=== PATIENT | female | born 1945 | race Caucasian/White ===

== ENCOUNTER 2017-03-21 11:21 | Emergency (ER) | payer MEDICARE, BC ==
[2017-03-21 11:59] VITALS: BP 159/86
[2017-03-21] MEDS ORDERED: Albuterol 0.083% 2.5 MG/3 ML Neb Soln NEB ONE (12:55)
[2017-03-21] MEDS ORDERED: methylPREDNISolone Sodium Succinate 125 MG/2 ML SDV IVPUSH ONE (12:55)
--- NOTE | 2017-03-21 12:56 | EDM.PDOC ---
ED HPI GENERAL MEDICAL PROBLEM - General Chief Complaint: Asthma Stated Complaint: BREATHING ISSUES Time Seen by Provider: 03/21/17 12:56 Source of Information: Reports: Patient History Limitations: Reports: No Limitations - History of Present Illness INITIAL COMMENTS - FREE TEXT/NARRATIVE: pt arrived with a history of having more sob in the last 24 hours. She is using her inhaler alot more. Pt states they are remodeling her cabin and wonders if the dust is playing a role. Onset: Other ( last 24 hours. ) Duration: Hour(s): Location: Reports: Chest Associated Symptoms: Reports: Cough, Shortness of Breath - Related Data Allergies Allergy/AdvReac Type Severity Reaction Status Date / Time No Known Allergies Allergy Verified 03/21/17 12:59 Home Meds: Home Meds Albuterol Sulfate [Proair Hfa] 2 puff INH ASDIRECTED PRN 03/21/17 [History] Albuterol [Proventil Neb Soln] 1 inh INH BID 03/21/17 [History] Budesonide/Formoterol [Symbicort 160-4.5 MCG] 1 puff INH BID 03/21/17 [History] Gabapentin [Neurontin] 600 mg PO BEDTIME 03/21/17 [History] Ibuprofen [IJD: Ibuprofen] 2,000 mg PO ASDIRECTED 03/21/17 [History] Tiotropium [Spiriva HandiHaler] 1 puff INH DAILY 03/21/17 [History] atorvaSTATin [Lipitor] 20 mg PO DAILY 03/21/17 [History] Past Medical History Cardiovascular History: Reports: High Cholesterol, Hypertension Respiratory History: Reports: Asthma, Croup [employer] History: Reports: Endometriosis Musculoskeletal History: Reports: Back Pain, Chronic, Fracture Other Musculoskeletal History: L3-L6 - Infectious Disease History Infectious Disease History: Reports: Measles, Mumps - Past Surgical History Female Surgical History: Reports: Hysterectomy Social & Family History - Tobacco Use Smoking Status *Q: Former Smoker Used Tobacco, but Quit: Yes Month Tobacco Last Used: February - Caffeine Use Caffeine Use: Reports: Coffee - Recreational Drug Use Recreational Drug Use: No ED ROS GENERAL - Review of Systems Review Of Systems: See Below Constitutional: Reports: No Symptoms HEENT: Reports: No Symptoms Respiratory: Reports: Shortness of Breath, Cough Cardiovascular: Reports: No Symptoms Endocrine: Reports: No Symptoms GI/Abdominal: Reports: No Symptoms : Reports: No Symptoms ED EXAM, GENERAL - Physical Exam Exam: See Below Free Text/Narrative:: pt arrived sob and very tight in the chest Exam Limited By: No Limitations General Appearance: Alert, Anxious, Mild Distress Ears: Normal TMs, Other ( pt has a large amount of wax in the left ear. ) Nose: Normal Inspection Throat/Mouth: Normal Inspection Head: Atraumatic Neck: Normal Inspection Respiratory/Chest: Decreased Breath Sounds, Wheezing Cardiovascular: Regular Rate, Rhythm GI/Abdominal: Soft, Non-Tender (Female) Exam: Deferred Rectal (Female) Exam: Deferred Back Exam: Normal Inspection Extremities: Normal Inspection Neurological: Alert, Oriented, Normal Cognition Psychiatric: Normal Affect Course - Vital Signs Last Recorded V/S: Last Vital Signs Temp 37.0 C 03/21/17 12:28 Pulse 95 03/21/17 12:28 Resp 20 03/21/17 12:28 BP 159/86 H 03/21/17 12:28 Pulse Ox 97 03/21/17 12:28 - Orders/Labs/Meds Orders: Active Orders 24 hr Category Date Time Status RT Aerosol Therapy [RC] ASDIRECTED Care 03/21/17 12:55 Active Labs: Laboratory Tests 03/21/17 03/21/17 Range/Units 13:06 13:06 WBC 9.2 (4.5-11.0) K/uL RBC 4.17 (3.30-5.50) M/uL Hgb 12.3 (12.0-15.0) g/dL Hct 38.9 (36.0-48.0) % MCV 93 (80-98) fL MCH 30 (27-31) pg MCHC 32 (32-36) % Plt Count 264 (150-400) K/uL Neut % (Auto) 57 (36-66) % Lymph % (Auto) 27 (24-44) % [place] % (Auto) 12 H (2-6) % Eos % (Auto) 4 (2-4) % Baso % (Auto) 1 (0-1) % Sodium 142 (140-148) mmol/L Potassium 4.5 (3.6-5.2) mmol/L Chloride 105 (100-108) mmol/L Carbon Dioxide 29 (21-32) mmol/L Anion Gap 8.0 (5.0-14.0) mmol/L BUN 12 (7-18) mg/dL Creatinine 0.9 (0.6-1.0) mg/dL Est Cr Clr Drug Dosing 48.11 mL/min Estimated GFR (MDRD) > 60 (>60) Glucose 112 H (74-106) mg/dL Calcium 9.1 (8.5-10.1) mg/dL Total Bilirubin 0.2 (0.2-1.0) mg/dL AST 32 (15-37) U/L ALT 40 (12-78) U/L Alkaline Phosphatase 94 (46-116) U/L Total Protein 7.1 (6.4-8.2) g/dL Albumin 3.5 (3.4-5.0) g/dL Globulin 3.6 H (2.3-3.5) g/dL Albumin/Globulin Ratio 1.0 L (1.2-2.2) Meds: Medications Discontinued Medications Generic Name Dose Route Start Last Admin Trade Name Freq PRN Reason Stop Dose Admin Albuterol 2.5 mg 03/21/17 12:55 03/21/17 13:27 Proventil Neb Soln NEB 03/21/17 12:56 2.5 mg ONETIME ONE Administration Methylprednisolone Sodium Succinate 125 mg 03/21/17 12:55 03/21/17 13:34 Solu-Medrol IVPUSH 03/21/17 12:56 125 mg ONETIME ONE Administration - Re-Assessments/Exams Free Text/Narrative Re-Assessment/Exam: 03/21/17 14:59 chest xray reveals no acute infiltrates There i a nodule over a rib. --4th rt rib Departure - Departure Time of Disposition: 15:02 Disposition: Home, Self-Care 01 Condition: fair Clinical Impression: Asthma attack - Discharge Information Forms: ED Department Discharge Care Plan Goals: avoid dust in the remodeling as much as possible, predisone 20mg daily for 5 days, use the nebulizer every 4 hours during the waking hours. rtc if problems, zpack. - My Orders Last 24 Hours: My Active Orders 03/21/17 12:55 RT Aerosol Therapy [RC] ASDIRECTED - Assessment/Plan Last 24 Hours: My Active Orders 03/21/17 12:55 RT Aerosol Therapy [RC] ASDIRECTED
--- NOTE | 2017-03-21 13:42 | CR ---
Chest 2V HISTORY: Shortness of breath. COMPARISON: None FINDINGS: Mild cardiomegaly. No acute congestive change. Small density overlying the anterior margin of the right fourth rib could represent benign bone island or summation artifact. No effusions or d ense infiltrate. Mild hyperinflation. Impression: 1. Mild cardiomegaly. 2. 1 cm sclerotic density overlying the anterior right fourth rib margin. This is indeterminant. For definitive evaluation suggest noncontrast CT chest.
== END 2017-03-21 15:23 | disposition home or self-care (01) ==
LOC: JP.ED 11:21
DX: J45.901 Unspecified asthma with (acute) exacerbation (principal); J44.9 Chronic obstructive pulmonary disease, unspecified; G89.29 Other chronic pain; E78.00 Pure hypercholesterolemia, unspecified; M54.9 Dorsalgia, unspecified; Z87.891 Personal history of nicotine dependence; Z79.899 Other long term (current) drug therapy; Z90.710 Acquired absence of both cervix and uterus
CPT/HCPCS: 36415; 71020; 80053; 85025; 96374; 99285; J2930; 99284